=== PATIENT | female | born 1975 | race Caucasian/White ===

== ENCOUNTER 2024-11-20 16:12 | Emergency (ER) | payer OTHER ==
[2024-11-20 17:10] LABS: Basophils # (auto) 0 10 ^3/uL (0-0.2); Basophils % (auto) 0.4 % (0.0-2.0); Eosinophils # (auto) 0.1 10 ^3/uL (0-0.8); Eosinophils % (auto) 1.6 % (0.0-7.0); Hemoglobin 12.9 g/dL (12.2-16.2); Lymphocytes # (auto) 1.8 10 ^3/uL (0.4-5.4); Lymphocytes % (auto) 27.6 % (10.0-50.0); Mean Corpuscular Hemoglobin 26.9 pg (28.0-32.0); Mean Corpuscular Volume 81.5 fL (80.0-100.0); Monocytes # (auto) 0.3 10 ^3/uL (0-1.3); Monocytes % (auto) 5.3 % (0.0-12.0); Neutrophils # (auto) 4.3 10 ^3/uL (1.6-8.6); Neutrophils % (auto) 65.1 % (37.0-80.0); Nucleated Red Blood Cells % 0.2 %; Platelet Count (auto) 274 10^3/uL (140-450); Red Blood Cells 4.78 10^6/uL (4.0-5.20); Red Cell Distribution Width 14.6 % (11.8-14.3); White Blood Cell 6.5 10^3/uL (4.4-10.8)
[2024-11-20 17:24] LABS: Alanine Aminotransferase 20 U/L (7-40); Albumin 4.5 g/dL (3.2-4.8); Anion Gap 10 (5-15); Aspartate Aminotransferase 13 U/L (13-40); BUN/Creatinine Ratio 17.2 (10.0-20.0); Blood Urea Nitrogen 11 mg/dL (9-23); Carbon Dioxide 26 mmol/L (20-31); Chloride 103 mmol/L (98-107); Potassium 4.1 mmol/L (3.5-5.1); Sodium 139 mmol/L (136-145)
[2024-11-20 17:25] LABS: Bilirubin, Total 0.5 mg/dL (0.2-1.0); Total Protein 6.8 g/dL (5.7-8.2)
[2024-11-20 17:26] LABS: Alkaline Phosphatase 118 U/L (46-116); Glucose 153 mg/dL (74-106)
[2024-11-20] MEDS: HYDROmorphone HCL 2 MG/ML VL/or syr IM ONE (19:28)
[2024-11-20] MEDS: ONDANSETRON HCL 4 MG/2 ML VIAL IM ONE (19:28)
[2024-11-20 19:34] VITALS: TEMP 98.5; O2SAT 96
[2024-11-20 19:58] VITALS: BP 108/69; PULSE 87; RESP 18
[2024-11-20 20:10] LABS: Urine Bacteria None Seen /hpf (None Seen)
[2024-11-20 20:25] LABS: Urine Blood Negative /uL (Negative); Urine Clarity Clear (Clear); Urine Color Yellow (Yellow); Urine Mucus FEW (None Seen); Urine Protein, UAD TRACE (Negative); Urine Specific Gravity 1.046 (1.001-1.035); Urine Squamous Epithelial Cell FEW /hpf (<5); Urine Urobilinogen Normal (Negative); Urine WBC 2 /HPF (0-5)
[2024-11-20] MEDS ORDERED: METO-281 PO (20:54)
--- NOTE | 2024-11-20 20:55 | ED.PDOC ---
HPI (NEURO) HPI Comments This patient is a pleasant but severely morbidly obese 49-year-old female who arrives the ED today for evaluation of headache pain with photophobia that started approximately three days ago and has been relatively unrelenting. Patient states a recent history of headache concerns for which she has seen a neurologist. Patient states she has some occipital artifact that he had a continued followed up with her neurologist. Patient states nausea with no vomiting. No fever. Patient denies any head trauma. Vital signs were stable on arrival. Chief Complaint: Headache Time Seen by MD: 16:19 Reviewed Notes: Nurses Notes Information Source: Patient Mode of Arrival: EMS Severity: Severe Dizziness/Weakness Severity: Unable to do activities Headache Severity: Severe Timing: Days Duration: Intermittent Prehospital treatment: None Headache Quality: Throbbing, Sharp Headache Location: Generalized Onset: At rest Circumstances: Spontaneous Symptoms: Other (Nausea) Associated Signs and Symptoms: Headache, Nausea Past Medical History PAST MEDICAL HISTORY: Denies Past Medical History (Other): Recent history of headache concerns Surgical History: Denies all surgeries 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 Family History Family History: Reviewed,noncontributory to illness, No family hx of Cancer, No family hx of DM, No family hx of Heart miguel, No family hx of HTN, No family hx ofKidney miguel, No family hx of Liver miguel, No family hx of Lung miguel, No family hx of Stroke Social History Smoker: Non-Smoker Alcohol: Denies ETOH Use Drugs: Denies Drug Use Lives In: Home Constitutional: denies: chills, diaphoresis, fatigue, fever, malaise, sweats, weakness, others EENTM: reports: photophobia; denies: blurred vision, double vision, ear bleeding, ear discharge, ear drainage, ear pain, ear ringing, eye pain, eye redness, hearing loss, mouth pain, mouth swelling, nasal discharge, nose bleeding, nose congestion, nose pain, tearing, throat pain, throat swelling, voice changes, others Respiratory: denies: cough, hemoptysis, orthopnea, SOB at rest, shortness of b reath, SOB with excertion, stridor, wheezing, others Cardiovascular: denies: chest pain, dizzy spells, diaphoresis, Dyspnea on exertion, edema, irregular heart beat, left arm pain, lightheadedness, palpitations, PND, syncope, others Gastrointestinal: denies: abdomen distended, abdominal pain, blood streaked bowels, constipated, diarrhea, dysphagia, difficulty swallowing, hematemesis, melena, nausea, poor appetite, poor fluid intake, rectal bleeding, rectal pain, vomiting, others Genitourinary: denies: abnormal vagina bleeding, burning, dyspareunia, dysuria, flank pain, frequency, hematuria, incontinence, pain, , vagina discharge, urgency, others Neurological: reports: headache; denies: dizziness, fainting, left sided numbness, left sided weakness, numbness, paresthesia, pre-existing deficit, right sided numbness, right sided weakness, seizure, speech problems, tingling, tremors, weakness, others Musculoskeletal: denies: back pain, gout, joint pain, joint swelling, muscle pain, muscle stiffness, neck pain, others Integumetry: denies: bruises, change in color, change in hair/nails, dryness, laceration, lesions, lumps, rash, wounds, others Allergic/Immunocompromised: denies: Difficulty Healing, Frequent Infections, Hives, Itching, others Hematologic/Lymphatic: denies: anemia, blood clots, easy bleeding, easy brui sing, swollen glands, others Endocrine: denies: excessive hunger, excessive sweating, excessive thirst, ex cessive urination, flushing, intolerance to cold, intolerance to heat, unexplained weight gain, unexplained weight loss, others Psychiatric: denies: anxiety, bipolar disorder, depression, hopeless, panic disorder, schizophrenia, sleepless, suicidal, others Physical Exam General Appearance: No Apparent Distress, Normal HEENT: Head (Cranial exam was unremarkable. No signs of trauma. No skull depressions or deformities. Patient has some mild photophobia.), Normal ENT Inspection, Pharynx Normal, TMs Normal Neck: Full Range of Motion, Non-Tender, Normal, Normal Inspection Respiratory: Chest Non-Tender, Lungs Clear, No Accessory Muscle Use, No Respiratory Distress, Normal Breath Sounds Cardiovascular: No Edema, No JVD, No Murmur, No Gallop, Normal Peripheral Pulses, Regular Rate/Rhythm Breast Exam: Deferred Gastrointestinal: No Organomegaly, Non Tender, No Pulsatile Mass, Normal Bowel Sounds, Soft Genitalia: Deferred Pelvic: Deferred Rectal: Deferred Extremities: No calf tenderness, Normal capillary refill, Normal inspection, Normal range of motion, Non-tender, No pedal edema Neurologic: Alert, No Motor Deficits, Normal Affect, Normal Mood, No Sensory Deficits Cerebellar Function: Normal Reflexes: Normal Skin: Dry, Normal Color, Warm Lymphatic: No Adenopathy Was a procedure done? Was a procedure done?: No Differential Diagnosis (SZ) Seizure: Other (UTI, sepsis, electrolyte abnormality, headache, migraine) X-Ray, Labs, Meds, VS Vital Signs Date Time Temp Pulse Resp B/P (MAP) Pulse Ox O2 Delivery O2 Flow Rate FiO2 11/20/24 19:58 87 18 108/69 11/20/24 19:34 87 18 96 Room Air 11/20/24 19:34 98.5 87 18 125/82 (96) 96 98.5 11/20/24 19:28 87 18 125/82 11/20/24 16:25 98.2 78 16 123/74 (90) 94 Lab Test 11/20/24 19:34 11/20/24 16:52 Range/Units Urine Color Yellow Yellow Urine Clarity Clear Clear Urine pH 6.0 5.0-9.0 Urine Specific [place] 1.046 H 1.001-1.035 Urine Protein Trace H Negative Urine Ketones 2+ H Negative Urine Blood Negative Negative /uL Urine Nitrite Negative Negative Urine Bilirubin Negative Negative Urine Urobilinogen Normal Negative mg/dL Urine Leukocyte Esterase Negative Negative /uL Urine RBC 1 0 - 4 /hpf Urine Microscopic WBC 2 0-5 /HPF Urine Squamous Epithelial Cells Few <5 /hpf Urine Bacteria None seen None Seen /hpf Urine Mucus Few None Seen Urine Glucose Normal Normal mg/dL Urine Test Negative Negative White Blood Count 6.5 4.4-10.8 10^3/uL Red Blood Count 4.78 4.0-5.20 10^6/uL Hemoglobin 12.9 12.2-16.2 g/dL Hematocrit 39.0 36.0-46.0 % Mean Corpuscular Volume 81.5 80.0-100.0 fL Mean Corpuscular Hemoglobin 26.9 L 28.0-32.0 pg Mean Corpuscular Hemoglobin Concent 33.0 32.0-36.0 g/dL Red Cell Distribution Width 14.6 H 11.8-14.3 % Platelet Count 274 140-450 10^3/uL Mean Platelet Volume 7.4 6.9-10.8 fL Neutrophils (%) (Auto) 65.1 37.0-80.0 % Lymphocytes (%) (Auto) 27.6 10.0-50.0 % Monocytes (%) (Auto) 5.3 0.0-12.0 % Eosinophils (%) (Auto) 1.6 0.0-7.0 % Basophils (%) (Auto) 0.4 0.0-2.0 % Neutrophils # (Auto) 4.3 1.6-8.6 10 ^3/uL Lymphocytes # (Auto) 1.8 0.4-5.4 10 ^3/uL Monocytes # (Auto) 0.3 0-1.3 10 ^3/uL Eosinophils # (Auto) 0.1 0-0.8 10 ^3/uL Basophils # (Auto) 0 0-0.2 10 ^3/uL Nucleated Red Blood Cells 0.2 % Sodium Level 139 136-145 mmol/L Potassium Level 4.1 3.5-5.1 mmol/L Chloride Level 103 98-107 mmol/L Carbon Dioxide Level 26 20-31 mmol/L Anion Gap 10 5-15 Blood Urea Nitrogen 11 9-23 mg/dL Creatinine 0.64 0.550-1.02 mg/dL Glomerular Filtration Rate Calc 109 >90 mL/min BUN/Creatinine Ratio 17.2 10.0-20.0 Serum Glucose 153 H 74-106 mg/dL Lactic Acid Level 0.9 0.4-2.0 mmol/L Calcium Level 10.0 8.7-10.4 mg/dL Total Bilirubin 0.5 0.2-1.0 mg/dL Aspartate Amino Transferase (AST) 13 13-40 U/L Alanine Aminotransferase (ALT) 20 7-40 U/L Alkaline Phosphatase 118 H 46-116 U/L Total Protein 6.8 5.7-8.2 g/dL Albumin 4.5 3.2-4.8 g/dL Current Medications Medications (Trade) Dose Ordered Sig/Marnie Route Start Time Stop Time Status Last Admin Hydromorphone HCl (Dilaudid Injection) 1 mg ONCE ONCE IM 11/20/24 16:30 11/20/24 16:31 DC 11/20/24 19:28 Ondansetron HCl (Zofran) 4 mg ONCE ONCE IM 11/20/24 16:30 11/20/24 16:31 DC 11/20/24 19:28 X-Ray, Labs, Meds, VS Comment All studies performed the ED were evaluated by me personally. Serum studies were unremarkable for any acute systemic process. UTI was unremarkable for any urinary tract infection. Advised patient I was not going to use any imaging studies tonight as she has already seen a neurologist and can continue with evaluation through him or her. Advised utilizing Reglan as needed for nausea relief. Advised follow up with Neurology as scheduled. Time of 1ST Reevaluation: 20:53 Reevaluation 1ST: Improved Consultation: PCP, Neurology Patient Education/Counseling: Diagnosis, Treatment Family Education/Counseling: Diagnosis, Treatment Departure 1 Departure Time of Disposition: 20:54 Impression: Primary Impression: Headache Disposition: HOME / SELF CARE / HOMELESS Condition: Stable Additional Instructions: Advised patient utilize medication as needed for symptomatic relief and additionally, patient should maintain follow up appointments with the Neurology for continued evaluation of headache concerns. e-Prescriptions Metoclopramide Hcl (Reglan) 10 Mg Tab 10 MG PO Q8HP PRN, #20 TAB Prov: JOSEFINA RIGGS 11/20/24 Discharged With: Self, Friend Critical Care Note Critical Care Time?: No Stability Stability form required: No Heart Score Heart Score: Heart Score Response (Comments) Value History N/A 0 EKG N/A 0 Age N/A 0 Risk Factors N/A 0 Troponin N/A 0 Total 0 JOSEFINA RIGGS PAC Nov 20, 2024 20:55
== END 2024-11-20 21:07 | disposition home or self-care (01) ==
LOC: EDUNIT# 16:12 → ER 16:12 → EDBD 16:12 → ER 21:07
DX: R51.9 Headache, unspecified (principal); H53.149 Visual discomfort, unspecified
CPT/HCPCS: 36415; 80053; 81001; 81025; 83605; 85025; 96372; 99284; J1171; J2405